=== PATIENT | female | born 1985 | race Caucasian/White ===

== ENCOUNTER 2018-04-14 15:28 | Inpatient (IN) ==
[2018-04-14] MEDS ORDERED: Tdap (Boostrix) Vaccine 0.5 ML SYRINGE IM ONE (15:54)
--- NOTE | 2018-04-14 15:54 | Emergency Department Note ---
Disposition Clinical Impression: Suicidal ideation Disposition: Admitted As Inpatient Condition: Good Time of Disposition: 22:38 Psych HPI - General Chief Complaint: ED Psychiatric Symptoms Stated Complaint: si Time Seen by Provider: 04/14/18 15:36 Source: patient Mode of arrival: ambulatory Limitations: no limitations Nursing Notes Reviewed: Yes Vital Signs Reviewed: Yes - History of Present Illness HPI Narrative: Patient is a 32-year-old female with a history of bipolar/schizophrenia who presents to [facility] ED with concern for suicidal ideation. She is present with her stepmother. States she went to the river yesterday and cut herself up with last. She then tried to drown herself in the river. Patient was seen at [place] emergency department last night but did not disclose that she was suicidal at the time. Apparently they thought she was swimming in the river and got the abrasions from the trees. Pt complaint: suicidal ideation Onset (ago): day(s) (1) History of similar episodes: Yes Improves with: none Worsens with: none Context: not taking psychiatric medications Associated Psychiatric Symptoms: suicidal ideation, auditory hallucinations, visual hallucinations Associated symptoms: Denies: shortness of breath, nausea, vomiting Traumatic symptoms: abrasion Treatments prior to arrival: none Self harm or harm to others: admits thoughts of self harm, has acted on plan - Related Data Allergies Allergy/AdvReac Type Severity Reaction Status Date / Time Penicillins Allergy Hives Verified 07/13/15 21:13 tramadol Allergy Hives Verified 07/13/15 21:13 All systems ED: reviewed and negative except as stated. Past Medical History - Past Medical History Attestation: Yes The following information was validated with the patient. Source: patient Medical history: Reports: no medical history Surgical history: Reports: hysterectomy Psychiatric history: Reports: bipolar, schizophrenia DIRECTOR CUSTOMER history: Reports: no DIRECTOR CUSTOMER history - Social History Smoking Status: Current every day smoker Smokeless Tobacco Status: No Alcohol use: Reports: rarely Drug use: Reports: cocaine, opiates, methamphetamine, IV Drug Use, other Physical Exam - General Limitations: no limitations General appearance: alert - Head Head exam: atraumatic, normocephalic, normal inspection - Eye Eye exam: Present: normal appearance, EOMI - ENT ENT exam: normal exam, normal oropharynx, mucous membranes moist - Neck Neck exam: Present: normal inspection, full ROM, trachea midline - Chest Chest inspection: Present: normal inspection, symmetric chest wall rise - Respiratory Respiratory exam: Present: normal lung sounds bilaterally - Cardiovascular Cardiovascular exam: Present: regular rate, normal rhythm, normal heart sounds - Abdominal Exam Abdominal exam: Present: soft, Non-Tender. Absent: tenderness, distention, guarding, rebound, rigidity - Extremities Exam Extremities exam: Present: other (multiple linear forearm abrasions) - Neurological Exam Neurological exam: Present: alert, oriented X3 - Psychiatric Psychiatric exam: Present: normal affect, normal mood - Skin Skin exam: Present: warm, dry, normal color, other (multiple linear ab, abdomen , left part of the neck.) Course Course Narrative: Patient seen and examined. Patient with multiple abrasions on her forearms and abdomen and one on her left neck. Patient states this was self-inflicted and that she was trying to commit suicide. States she has a history of methamphetamine use most recent of which was 2 days ago. She was seen at [facility] emergency department last night and did not disclose that she was suicidal at that time. We will do medical clearance and have psychiatry see her here. Patient also states she has intermittently had some shortness of breath. We will order a chest x-ray. Her tetanus status is unknown so we will go ahead and update her here. Will give a liter of IVF since she is mildy tachycardic here and UA is concentrated. - Reevaluation(s) Reevaluation #1: UDS positive for opiates, amphetamines, and cocaine. Pt medically cleared for 1A evaluation. Time: 16:59 Reevaluation #2: Patient accepted by our psychiatry unit. We will place the bed request and sign the pink slip. Time: 19:00 Vital Signs Temperature 98.1 F 04/14/18 15:30 Pulse Rate 124 04/14/18 15:30 Respiratory Rate 14 04/14/18 15:30 Blood Pressure 117/73 04/14/18 15:30 O2 Sat by Pulse Oximetry 96 04/14/18 15:30 Temperature 98.9 F 04/14/18 20:32 Pulse Rate 107 04/14/18 20:32 Respiratory Rate 16 04/14/18 20:32 Blood Pressure 107/71 04/14/18 20:32 O2 Sat by Pulse Oximetry 96 04/14/18 15:30 Oxygen Delivery Oxygen Delivery Room Air Psych - Medical Records Medical records reviewed: Yes I reviewed the patient's medical records. - Lab Data Lab results reviewed: Yes I reviewed the patient's lab results. Result diagrams: 04/14/18 15:50 04/14/18 15:50 Lab Results 04/14/18 04/14/18 04/14/18 Range/Units 15:40 15:40 15:48 WBC (4.3-11.1) K/mcL RBC (3.82-4.97) M/mcL Hgb (11.5-15.4) g/dL Hct (35.3-44.9) % MCV (83.0-100.0) fL MCH (28.0-33.3) pg MCHC (31.6-35.5) g/dL RDW (11.5-14.5) % Plt Count (140-400) K/mcL MPV (9.4-12.4) fL Immature Gran % (0-4) % Seg Neutrophils % % Lymphocytes % % Monocytes % % Eosinophils % % Basophils % % Neutrophils # (1.6-8.9) K/mcL Lymphocytes # (0.6-4.6) K/mcL Monocytes # (0.0-1.3) K/mcL Eosinophils # (0.0-0.6) K/mcL Basophils # (0.0-0.2) K/mcL Sodium (136-145) mEq/L Potassium (3.5-5.1) mEq/L Chloride (98-107) mEq/L Carbon Dioxide (23-29) mEq/L BUN (6-20) mg/dL Creatinine (0.60-1.20) mg/dL Est GFR ( Amer) (> 60) Est GFR (Non-Af Amer) (> 60) BUN/Creatinine Ratio (6-26) Glucose (70-105) mg/dL Calculated Osmolality (280-300) Calcium (8.6-10.3) mg/dL Urine Color Yellow (Yellow) Urine Clarity Cloudy A (Clear) Urine pH 6.0 (5.0-8.0) pH Units Ur Specific [place] > 1.030 H (1.010-1.025) Urine Protein Trace (Neg-Trace) mg/dL Urine Glucose (UA) Normal (Normal) mg/dL Urine Ketones 40 H (Negative) mg/dL Urine Blood Negative (Negative) Urine Nitrite Negative (Negative) Urine Bilirubin Small H (Negative) Urine Urobilinogen Normal (Normal) mg/dL Ur Leukocyte Esterase Negative (Negative) Urine Microscopic WBC 5-15 H (0-3) per hpf Ur Squamous Epith Cells Many H (None-Few) per lpf Urine Bacteria Many H (None-Few) per hpf Hyaline Casts None Seen (None-Few) per lpf Urine Test Negative (Negative) Salicylates (15.0-30.0) mg/dL Urine Opiates Screen Positive H (Bkvizh=894) ng/mL Acetaminophen (10-20) mcg/mL Ur Barbiturates Screen Negative (Yfvbqm=078) ng/mL Ur Phencyclidine Scrn Negative (Cutoff=25) ng/mL Ur Amphetamines Screen Positive H (Ybwown=7500) ng/mL U Benzodiazepines Scrn Negative (Asjqlw=823) ng/mL Urine Cocaine Screen Positive H (Cutoff= 300) ng/mL U Marijuana (THC) Screen Negative (Cutoff = 50) ng/mL Ethyl Alcohol (Less than 10) mg/dL 04/14/18 04/14/18 Range/Units 15:50 15:50 WBC 10.3 (4.3-11.1) K/mcL RBC 5.15 H (3.82-4.97) M/mcL Hgb 15.2 (11.5-15.4) g/dL Hct 43.1 (35.3-44.9) % MCV 83.7 (83.0-100.0) fL MCH 29.5 (28.0-33.3) pg MCHC 35.3 (31.6-35.5) g/dL RDW 13.2 (11.5-14.5) % Plt Count 294 (140-400) K/mcL MPV 9.7 (9.4-12.4) fL Immature Gran % 0.2 (0-4) % Seg Neutrophils % 42.7 % Lymphocytes % 44.9 % Monocytes % 11.4 % Eosinophils % 0.4 % Basophils % 0.4 % Neutrophils # 4.4 (1.6-8.9) K/mcL Lymphocytes # 4.6 (0.6-4.6) K/mcL Monocytes # 1.2 (0.0-1.3) K/mcL Eosinophils # 0.0 (0.0-0.6) K/mcL Basophils # 0.0 (0.0-0.2) K/mcL Sodium 135 L (136-145) mEq/L Potassium 3.6 (3.5-5.1) mEq/L Chloride 104 (98-107) mEq/L Carbon Dioxide 22 L (23-29) mEq/L BUN 17 (6-20) mg/dL Creatinine 0.80 (0.60-1.20) mg/dL Est GFR ( Amer) > 60 (> 60) Est GFR (Non-Af Amer) > 60 (> 60) BUN/Creatinine Ratio 21 (6-26) Glucose 145 H (70-105) mg/dL Calculated Osmolality 284 (280-300) Calcium 9.9 (8.6-10.3) mg/dL Urine Color (Yellow) Urine Clarity (Clear) Urine pH (5.0-8.0) pH Units Ur Specific [place] (1.010-1.025) Urine Protein (Neg-Trace) mg/dL Urine Glucose (UA) (Normal) mg/dL Urine Ketones (Negative) mg/dL Urine Blood (Negative) Urine Nitrite (Negative) Urine Bilirubin (Negative) Urine Urobilinogen (Normal) mg/dL Ur Leukocyte Esterase (Negative) Urine Microscopic WBC (0-3) per hpf Ur Squamous Epith Cells (None-Few) per lpf Urine Bacteria (None-Few) per hpf Hyaline Casts (None-Few) per lpf Urine Test (Negative) Salicylates < 2.5 L (15.0-30.0) mg/dL Urine Opiates Screen (Lgieod=826) ng/mL Acetaminophen < 10 L (10-20) mcg/mL Ur Barbiturates Screen (Icjqmm=851) ng/mL Ur Phencyclidine Scrn (Cutoff=25) ng/mL Ur Amphetamines Screen (Szhijb=1029) ng/mL U Benzodiazepines Scrn (Vuqtyw=570) ng/mL Urine Cocaine Screen (Cutoff= 300) ng/mL U Marijuana (THC) Screen (Cutoff = 50) ng/mL Ethyl Alcohol < 10 (Less than 10) mg/dL - Radiology Data Radiology results reviewed: Yes I reviewed the patient's radiology results. Psychiatric Medical Clearance - Medical Clearance Checklist Does the patient have a NEW psychiatric condition?: No Any abnormalities indicating possible medical illness?: No Any history of medical issues?: No Medical History: No Social History Section defined Any abnormal vital signs prior to transfer?: No Current Vitals: Last Vital Signs Temp 98.9 F 04/14/18 20:32 Pulse 107 04/14/18 20:32 Resp 16 04/14/18 20:32 BP 107/71 04/14/18 20:32 Pulse Ox 96 04/14/18 15:30 Is the patient intoxicated or cognitively impaired?: No Psychiatric Lab Panel: Drug Levels and Toxicity 04/14/18 04/14/18 15:48 15:50 Urine Opiates Screen Positive H Acetaminophen < 10 L Ur Barbiturates Screen Negative Ur Phencyclidine Scrn Negative Ur Amphetamines Screen Positive H U Benzodiazepines Scrn Negative Urine Cocaine Screen Positive H U Marijuana (THC) Screen Negative Ethyl Alcohol < 10 Any abnormalities on the physical exam?: No Any abnormal labs?: No Abnormal Labs: Abnormal lab results RBC 5.15 M/mcL (3.82-4.97) H 04/14/18 15:50 Sodium 135 mEq/L (136-145) L 04/14/18 15:50 Carbon Dioxide 22 mEq/L (23-29) L 04/14/18 15:50 Glucose 145 mg/dL (70-105) H 04/14/18 15:50 Urine Clarity Cloudy (Clear) A 04/14/18 15:40 Ur Specific [place] > 1.030 (1.010-1.025) H 04/14/18 15:40 Urine Ketones 40 mg/dL (Negative) H 04/14/18 15:40 Urine Bilirubin Small (Negative) H 04/14/18 15:40 Urine Microscopic WBC 5-15 per hpf (0-3) H 04/14/18 15:40 Ur Squamous Epith Cells Many per lpf (None-Few) H 04/14/18 15:40 Urine Bacteria Many per hpf (None-Few) H 04/14/18 15:40 Salicylates < 2.5 mg/dL (15.0-30.0) L 04/14/18 15:50 Urine Opiates Screen Positive ng/mL (Eckjia=403) H 04/14/18 15:48 Acetaminophen < 10 mcg/mL (10-20) L 04/14/18 15:50 Ur Amphetamines Screen Positive ng/mL (Zptuji=3733) H 04/14/18 15:48 Urine Cocaine Screen Positive ng/mL (Cutoff= 300) H 04/14/18 15:48 Does the patient require durable medical equiptment?: No Is the patient ambulatory?: Yes Is the patient a fall risk?: No Has the patient been medically cleared?: Yes Any acute medical condition require Tx prior to transfer?: No Statement of Medical Clearance: I have evaluated the patient, reviewed diagnostic information, and certify that the patient's medical condition is sufficiently stable that transfer to the psychiatric unit does not pose a significant risk of deterioration.
[2018-04-14 16:00] LABS: Basophils % 0.4 %; Eosinophils % 0.4 %; Hematocrit 43.1 % (35.3-44.9); Hemoglobin 15.2 g/dL (11.5-15.4); Immature Granulocytes % 0.2 % (0-4); Lymphocytes # 4.6 K/mcL (0.6-4.6); Lymphocytes % 44.9 %; Mean Corpuscular HGB Conc 35.3 g/dL (31.6-35.5); Mean Corpuscular Hemoglobin 29.5 pg (28.0-33.3); Mean Corpuscular Volume 83.7 fL (83.0-100.0); Mean Platelet Volume 9.7 fL (9.4-12.4); Monocytes # 1.2 K/mcL (0.0-1.3); Monocytes % 11.4 %; Neutrophils # 4.4 K/mcL (1.6-8.9); Platelet Count 294 K/mcL (140-400); Red Blood Count 5.15 M/mcL (3.82-4.97); Red Cell Distribution Width 13.2 % (11.5-14.5); Segmented Neutrophils % 42.7 %
[2018-04-14 16:02] LABS: Bilirubin,Urine Small (Negative); Blood,Urine Negative (Negative); Clarity,Urine Cloudy (Clear); Color,Urine Yellow (Yellow); Glucose,Urine (UA) Normal (Normal); Ketones,Urine 40 mg/dL (Negative); Leukocyte Esterase,Urine Negative (Negative); Nitrite,Urine Negative (Negative); Protein,Urine Trace mg/dL (Neg-Trace); Specific Gravity,Urine > 1.030 (1.010-1.025); Urobilinogen,Urine Normal (Normal)
[2018-04-14 16:10] LABS: Bacteria,Urine Many per hpf (None-Few); Hyaline Casts,Urine None Seen per lpf (None-Few); Squamous Epithelial Cell,Urine Many per lpf (None-Few)
[2018-04-14] MEDS ORDERED: 0.9 % Sodium Chloride 1,000 ML IVC ONE (16:13)
--- NOTE | 2018-04-14 16:14 | Emergency Department Note ---
Disposition Clinical Impression: Suicidal ideation Disposition: Still a Patient Condition: Good Forms: ED Satisfaction Letter General Adult HPI - General Chief complaint: ED Psychiatric Symptoms Stated complaint: si Time Seen by Provider: 04/14/18 15:36 Source: patient Mode of arrival: ambulatory Limitations: no limitations - History of Present Illness Pain Scale: 4 - Related Data Allergies Allergy/AdvReac Type Severity Reaction Status Date / Time Penicillins Allergy Hives Verified 07/13/15 21:13 tramadol Allergy Hives Verified 07/13/15 21:13 Past Medical History - Past Medical History Medical history: Reports: no medical history Surgical history: Reports: hysterectomy Psychiatric history: Reports: bipolar, schizophrenia PLIER WORKER history: Reports: no PLIER WORKER history - Social History Smoking Status: Current every day smoker Smokeless Tobacco Status: No Alcohol use: Reports: rarely Drug use: Reports: cocaine, opiates, methamphetamine, IV Drug Use, other Physical Exam - General Limitations: no limitations General appearance: alert Course Vital Signs Temperature 98.1 F 04/14/18 15:30 Pulse Rate 124 04/14/18 15:30 Respiratory Rate 14 04/14/18 15:30 Blood Pressure 117/73 04/14/18 15:30 O2 Sat by Pulse Oximetry 96 04/14/18 15:30 Temperature 98.1 F 04/14/18 15:30 Pulse Rate 124 04/14/18 15:30 Respiratory Rate 14 04/14/18 15:30 Blood Pressure 117/73 04/14/18 15:30 O2 Sat by Pulse Oximetry 96 04/14/18 15:30 Oxygen Delivery Oxygen Delivery Room Air Medical Decision Making - Lab Data Result diagrams: 04/14/18 15:50 Lab Results 04/14/18 04/14/18 04/14/18 Range/Units 15:40 15:40 15:50 WBC 10.3 (4.3-11.1) K/mcL RBC 5.15 H (3.82-4.97) M/mcL Hgb 15.2 (11.5-15.4) g/dL Hct 43.1 (35.3-44.9) % MCV 83.7 (83.0-100.0) fL MCH 29.5 (28.0-33.3) pg MCHC 35.3 (31.6-35.5) g/dL RDW 13.2 (11.5-14.5) % Plt Count 294 (140-400) K/mcL MPV 9.7 (9.4-12.4) fL Immature Gran % 0.2 (0-4) % Seg Neutrophils % 42.7 % Lymphocytes % 44.9 % Monocytes % 11.4 % Eosinophils % 0.4 % Basophils % 0.4 % Neutrophils # 4.4 (1.6-8.9) K/mcL Lymphocytes # 4.6 (0.6-4.6) K/mcL Monocytes # 1.2 (0.0-1.3) K/mcL Eosinophils # 0.0 (0.0-0.6) K/mcL Basophils # 0.0 (0.0-0.2) K/mcL Urine Color Yellow (Yellow) Urine Clarity Cloudy A (Clear) Urine pH 6.0 (5.0-8.0) pH Units Ur Specific [place] > 1.030 H (1.010-1.025) Urine Protein Trace (Neg-Trace) mg/dL Urine Glucose (UA) Normal (Normal) mg/dL Urine Ketones 40 H (Negative) mg/dL Urine Blood Negative (Negative) Urine Nitrite Negative (Negative) Urine Bilirubin Small H (Negative) Urine Urobilinogen Normal (Normal) mg/dL Ur Leukocyte Esterase Negative (Negative) Urine Test Negative (Negative) Attestation Statement - Attestation Attestation: I examined this patient and my medical decision-making was reviewed with the Resident Physician. I agree with the documented findings, disposition and treatment plan as described except to the extent set forth below. 32 year old claire carter ot the ED with complaints of SI and state that yesterday she was evalauted at [place]ign [place] and she has multiple intetional sractch marsk on her body in attempts to kill herself and tried to drown ysterday. Amelia do mdical clearance including trauma eval and then consult Jd Wilsl be admitted.
[2018-04-14 16:20] LABS: Acetaminophen < 10 mcg/mL (10-20); BUN/Creatinine Ratio 21 (6-26); Blood Urea Nitrogen 17 mg/dL (6-20); Calcium 9.9 mg/dL (8.6-10.3); Carbon Dioxide 22 mEq/L (23-29); Chloride 104 mEq/L (98-107); Ethanol < 10 mg/dL (Less than 10); Glucose 145 mg/dL (70-105); Osmolality,Calculated 284 (280-300); Potassium 3.6 mEq/L (3.5-5.1); Salicylate < 2.5 mg/dL (15.0-30.0); Sodium 135 mEq/L (136-145); eGFR For African Americans > 60 (> 60); eGFR For Non-African Americans > 60 (> 60)
[2018-04-14] MEDS ORDERED: Ibuprofen 600 MG TABLET PO ONE (16:33)
[2018-04-14 16:52] LABS: Amphetamine Screen,Urine Positive ng/mL (Cutoff=1000); Barbiturate Screen,Urine Negative ng/mL (Cutoff=200); Benzodiazepines Screen,Urine Negative ng/mL (Cutoff=200); Cannabinoid Screen,Urine Negative ng/mL (Cutoff = 50); Cocaine Screen,Urine Positive ng/mL (Cutoff= 300); Opiate Screen,Urine Positive ng/mL (Cutoff=300); Phencyclidine Screen,Urine Negative ng/mL (Cutoff=25)
[2018-04-14] MEDS ORDERED: *HR* LORazepam 2 MG/ML VIAL IM PRN (18:57)
[2018-04-14] MEDS ORDERED: Mag Hydrox/Al Hydrox/Simeth 30 ML UDC PO PRN (18:57)
[2018-04-14] MEDS ORDERED: Haloperidol Lactate 5 MG/ML VIAL IM PRN (18:57)
[2018-04-14] MEDS ORDERED: MOM Conc 10 ML UD.LIQ PO PRN (18:57)
[2018-04-14] MEDS ORDERED: *HR* LORazepam 1 MG TABLET PO PRN (18:57)
[2018-04-14] MEDS ORDERED: hydrOXYzine pamoate 25 MG CAPSULE PO PRN (18:57)
[2018-04-14] MEDS ORDERED: risperiDONE 1 MG TABLET PO ONE ×2 (21:00)
[2018-04-15] MEDS: Ibuprofen 400 MG TABLET PO PRN ×2 (09:13→15:47)
--- NOTE | 2018-04-15 09:35 | Psychiatry History & Physical ---
Date of Encounter: 04/15/18 Time of Encounter: 09:33 History of Present Illness Patient Stated Chief Complaint: Suicidal ideation, self-mutilation Medicare Admission Attestation: For traditional Medicare patients the provided hospital inpatient services are reasonable and necessary and in the case of services not specified as inpatient -only under 42 CFR 419.22 (n), that they are appropriately provided as inpatient services in accordance 42 CFR 412.3. For Critical Access Hospital the patient may reasonably be expected to be discharged or transferred to a hospital within 96 hours after admission to the Critical Access Hospital. Admitted From: Emergency Dept History of Present Illness: Ms. Monk is a 32 year old female admitted from the emergency department for suicidal ideation and self-mutilation. Patient has a history of psychosis and drug abuse and noncompliance. UDS was positive for opiates amphetamine and cocaine. Patient also has a history of IVDA. Patient was noncompliant with medication prior to admission and admitted to use drugs of on the streets. She reports she did well when she went into drug treatment but she did not continue. Patient reports feeling low self-esteem, hopelessness and helplessness. She was hospitalized in 2013 and 2010 in this hospital for similar presentation of psychosis drug abuse and suicidal ideation. Consistently she was noncompliant. Patient has 2 children that she lost custody of and has no social support at this time and she was homeless. Patient has high school diploma and did work in factories in the past. Past Med Surg Social Fam HX - Past Medical History Medical history: no medical history - Past Psychiatric History Psychiatric history: Reports: depression, schizophrenia, previous psychiatric hospitalization, other (Substance abuse) Past psychiatric history details: Was hospitalized in 2013 and 2010 for psychosis and substance abuse - Past Surgical History Surgical History: hysterectomy - Social History Smoking Status: Current every day smoker Smokeless Tobacco Status: No Alcohol use: rarely Drug use: cocaine, opiates, methamphetamine, IV Drug Use, other Medications & Allergies 3 Allergy/AdvReac Type Severity Reaction Status Date / Time Penicillins Allergy Hives Verified 07/13/15 21:13 tramadol Allergy Hives Verified 07/13/15 21:13 Review of Systems Psychiatric: Reports: depression, suicidal ideation, auditory hallucinations, hopelessness Exam - HEENT Head exam IM: Present: atraumatic Eye exam IM: Present: EOMI, normal appearance, PERRL ENT exam IM: Present: normal exam - Neurological Neurological exam: Present: CN II-XII intact - Respiratory Respiratory exam IM: Present: CTAB - GI/Abdominal GI/Abdominal exam IM: Present: normal bowel sounds, soft. Absent: tenderness - Extremities Extremities exam IM: Present: full ROM - Skin Skin exam IM: Present: abrasion (Self-mutilation on both forearms), dry, warm - Constitutional Vitals: Temp Pulse Resp BP Pulse Ox 98.9 F 107 16 107/71 96 04/14/18 20:32 04/14/18 20:32 04/14/18 20:32 04/14/18 20:32 04/14/18 15:30 General appearance: age & developmentally appropriate, well-nourished, unkempt, disheveled - Musculoskeletal Gait: normal Station: relaxed Strength & Tone: normal for patient - Psychiatric Patient Orientation: Yes Person, Yes Time, Yes Place Level of alertness: Alert Behavior: calm, cooperative, restless Psychomotor activity: Normal Eye Contact: Minimal Contact Mood Description: Depressed, Anxious, Irritable Affect description: congruent with mood, labile, dysphoric Speech Volume: Normal, Soft/Quiet Speech pattern: normal rate, normal rhythm, normal tone, fluent, limited Language & Vocabulary: consistent with education Thought Process: Linear, Goal Oriented Thought Content: Yes Suicidal ideation, No Homicidal ideation, No Overt delusions Perceptual Disturbances: Yes Auditory hallucinations, No Visual hallucinations Attention Span Ability: Unable to Focus Memory Description: Grossly Intact Patient Reliability: Questionable Historian Fund of knowledge: Yes abstraction ability, Yes average, Yes aware of current events Intelligence Estimate: Average Judgment: Limited Insight: Partial Results - Labs Labs: Laboratory Last Values WBC 10.3 K/mcL (4.3-11.1) 04/14/18 15:50 RBC 5.15 M/mcL (3.82-4.97) H 04/14/18 15:50 Hgb 15.2 g/dL (11.5-15.4) 04/14/18 15:50 Hct 43.1 % (35.3-44.9) 04/14/18 15:50 MCV 83.7 fL (83.0-100.0) 04/14/18 15:50 MCH 29.5 pg (28.0-33.3) 04/14/18 15:50 MCHC 35.3 g/dL (31.6-35.5) 04/14/18 15:50 RDW 13.2 % (11.5-14.5) 04/14/18 15:50 Plt Count 294 K/mcL (140-400) 04/14/18 15:50 MPV 9.7 fL (9.4-12.4) 04/14/18 15:50 Immature Gran % 0.2 % (0-4) 04/14/18 15:50 Seg Neutrophils % 42.7 % 04/14/18 15:50 Lymphocytes % 44.9 % 04/14/18 15:50 Monocytes % 11.4 % 04/14/18 15:50 Eosinophils % 0.4 % 04/14/18 15:50 Basophils % 0.4 % 04/14/18 15:50 Neutrophils # 4.4 K/mcL (1.6-8.9) 04/14/18 15:50 Lymphocytes # 4.6 K/mcL (0.6-4.6) 04/14/18 15:50 Monocytes # 1.2 K/mcL (0.0-1.3) 04/14/18 15:50 Eosinophils # 0.0 K/mcL (0.0-0.6) 04/14/18 15:50 Basophils # 0.0 K/mcL (0.0-0.2) 04/14/18 15:50 Sodium 135 mEq/L (136-145) L 04/14/18 15:50 Potassium 3.6 mEq/L (3.5-5.1) 04/14/18 15:50 Chloride 104 mEq/L (98-107) 04/14/18 15:50 Carbon Dioxide 22 mEq/L (23-29) L 04/14/18 15:50 BUN 17 mg/dL (6-20) 04/14/18 15:50 Creatinine 0.80 mg/dL (0.60-1.20) 04/14/18 15:50 Est GFR ( Amer) > 60 (> 60) 04/14/18 15:50 Est GFR (Non-Af Amer) > 60 (> 60) 04/14/18 15:50 BUN/Creatinine Ratio 21 (6-26) 04/14/18 15:50 Glucose 145 mg/dL (70-105) H 04/14/18 15:50 Calculated Osmolality 284 (280-300) 04/14/18 15:50 Calcium 9.9 mg/dL (8.6-10.3) 04/14/18 15:50 Urine Color Yellow (Yellow) 04/14/18 15:40 Urine Clarity Cloudy (Clear) A 04/14/18 15:40 Urine pH 6.0 pH Units (5.0-8.0) 04/14/18 15:40 Ur Specific [place] > 1.030 (1.010-1.025) H 04/14/18 15:40 Urine Protein Trace mg/dL (Neg-Trace) 04/14/18 15:40 Urine Glucose (UA) Normal mg/dL (Normal) 04/14/18 15:40 Urine Ketones 40 mg/dL (Negative) H 04/14/18 15:40 Urine Blood Negative (Negative) 04/14/18 15:40 Urine Nitrite Negative (Negative) 04/14/18 15:40 Urine Bilirubin Small (Negative) H 04/14/18 15:40 Urine Urobilinogen Normal mg/dL (Normal) 04/14/18 15:40 Ur Leukocyte Esterase Negative (Negative) 04/14/18 15:40 Urine Microscopic WBC 5-15 per hpf (0-3) H 04/14/18 15:40 Ur Squamous Epith Cells Many per lpf (None-Few) H 04/14/18 15:40 Urine Bacteria Many per hpf (None-Few) H 04/14/18 15:40 Hyaline Casts None Seen per lpf (None-Few) 04/14/18 15:40 Urine Test Negative (Negative) 04/14/18 15:40 Salicylates < 2.5 mg/dL (15.0-30.0) L 04/14/18 15:50 Urine Opiates Screen Positive ng/mL (Abhbxw=154) H 04/14/18 15:48 Acetaminophen < 10 mcg/mL (10-20) L 04/14/18 15:50 Ur Barbiturates Screen Negative ng/mL (Gcrfie=571) 04/14/18 15:48 Ur Phencyclidine Scrn Negative ng/mL (Cutoff=25) 04/14/18 15:48 Ur Amphetamines Screen Positive ng/mL (Egblrv=9860) H 04/14/18 15:48 U Benzodiazepines Scrn Negative ng/mL (Mtfsjj=202) 04/14/18 15:48 Urine Cocaine Screen Positive ng/mL (Cutoff= 300) H 04/14/18 15:48 U Marijuana (THC) Screen Negative ng/mL (Cutoff = 50) 04/14/18 15:48 Ethyl Alcohol < 10 mg/dL (Less than 10) 04/14/18 15:50 Assessment and Plan (1) Suicidal ideation Current visit: Yes Status: Acute Plan: Admit inpatient for safety and stabilization, Close observation, Suicide Precautions per unit protocol, Encourage participation in unit milieu, Group Therapy, Monitor sleep, Monitor appetite Risks, benefits, side effects, alternatives discussed w/pt: Yes Patient agreeable to treatment: Yes Estimated Length of Stay (Days): 5 (2) Polysubstance dependence including opioid type drug without complication, continuous use Current visit: Yes Status: Acute Plan: Admit inpatient for safety and stabilization, Close observation, Suicide Precautions per unit protocol, Encourage participation in unit milieu, Group Therapy, Monitor sleep, Monitor appetite Risks, benefits, side effects, alternatives discussed w/pt: Yes Patient agreeable to treatment: Yes
[2018-04-15] MEDS: Venlafaxine XR (24 HR) 75 MG CAP.ER.24H PO SCH (12:02)
[2018-04-16] MEDS: Venlafaxine XR (24 HR) 75 MG CAP.ER.24H PO SCH (09:32)
[2018-04-16] MEDS: Ibuprofen 400 MG TABLET PO PRN (09:32)
--- NOTE | 2018-04-16 13:08 | Psychiatry Progress Note ---
Date of Encounter: 04/16/18 Time of Encounter: 13:06 Subjective Interval history: Patient seen for follow-up. Case discussed was nursing staff. She reports sleeping better and denied a any hallucination or suicidal ideation. She met was social insurance specialist will help her placed in drug treatment program. She is anxious about some legal charges that are pending and awaiting information. No behavioral problems or agitation report. She is medication compliant and cooperative. Review of Systems Psychiatric: Reports: depression, suicidal ideation, auditory hallucinations, hopelessness Results - Vital Signs Vital Signs: Temp Pulse Resp BP Pulse Ox 97.4 F L 68 18 125/89 96 04/16/18 09:00 04/16/18 09:00 04/16/18 09:00 04/16/18 09:00 04/14/18 15:30 Assessment and Plan (1) Suicidal ideation Current visit: Yes Status: Acute Plan: Continue hospitalization, Close observation, Suicide Precautions per unit protocol, Encourage participation in unit milieu, Group Therapy, Monitor sleep, Monitor appetite Risks, benefits, side effects, alternatives discussed w/pt: Yes Patient agreeable to treatment: Yes (2) Polysubstance dependence including opioid type drug without complication, continuous use Current visit: Yes Status: Acute Plan: Continue hospitalization, Close observation, Suicide Precautions per unit protocol, Encourage participation in unit milieu, Group Therapy, Monitor sleep, Monitor appetite Risks, benefits, side effects, alternatives discussed w/pt: Yes Patient agreeable to treatment: Yes Consult Discharge Plan - Plan Referrals: NONE,PCP [Primary Care Provider] - Psychiatry Exam - Constitutional Vitals: Temp Pulse Resp BP Pulse Ox 97.4 F L 68 18 125/89 96 04/16/18 09:00 04/16/18 09:00 04/16/18 09:00 04/16/18 09:00 04/14/18 15:30 General appearance: age & developmentally appropriate, well-groomed, well- nourished, average - Musculoskeletal Gait: normal Station: relaxed Strength & Tone: normal for patient - Psychiatric Patient Orientation: Yes Person, Yes Time, Yes Place Level of alertness: Alert Behavior: calm, cooperative Psychomotor activity: Slowed Eye Contact: Maintains Eye Contact Mood Description: Euthymic/stable, Depressed Affect description: congruent with mood, constricted Speech Volume: Normal Speech pattern: normal rate, normal rhythm, normal tone, fluent, spontaneous Language & Vocabulary: consistent with education Thought Process: Linear, Goal Oriented Thought Content: No Suicidal ideation, No Homicidal ideation, No Overt delusions Perceptual Disturbances: No Auditory hallucinations, No Visual hallucinations Attention Span Ability: Capable of Focused Attention Memory Description: Grossly Intact Patient Reliability: Reliable Historian Fund of knowledge: Yes abstraction ability, Yes aware of current events Intelligence Estimate: Average Judgment: Limited Insight: Partial
[2018-04-16] MEDS: Nicotine 21 MG PATCH.TD24 TD SCH (20:18)
[2018-04-16] MEDS: traZODone 50 MG TABLET PO PRN (21:53)
[2018-04-17] MEDS: Ibuprofen 400 MG TABLET PO PRN ×2 (08:43→18:55)
[2018-04-17] MEDS: Venlafaxine XR (24 HR) 75 MG CAP.ER.24H PO SCH (08:43)
[2018-04-17] MEDS: Nicotine 21 MG PATCH.TD24 TD SCH (08:44)
--- NOTE | 2018-04-17 14:36 | Psychiatry Progress Note ---
Date of Encounter: 04/17/18 Time of Encounter: 14:34 Subjective Interval history: Patient seen for follow-up. Case discussed with treatment team. Patient denies suicidal ideation or hallucinations. She is medication compliant and report to improve sleep. She denies any withdrawal symptoms. She is working on discharge plan with social media senior associate with option to starts drug rehabilitation if bed is available. Affect still flat but otherwise she denies having any depressive symptoms or hopelessness. She is cooperative, ADLs improved. Review of Systems Psychiatric: Reports: depression, suicidal ideation, auditory hallucinations, hopelessness Results - Vital Signs Vital Signs: Temp Pulse Resp BP Pulse Ox 98.2 F 64 16 142/96 96 04/17/18 08:23 04/17/18 08:23 04/17/18 08:04/17/18 08:04/14/18 15:30 Assessment and Plan (1) Suicidal ideation Current visit: Yes Status: Acute Plan: Continue hospitalization, Close observation, Suicide Precautions per unit protocol, Encourage participation in unit milieu, Group Therapy, Monitor sleep, Monitor appetite Risks, benefits, side effects, alternatives discussed w/pt: Yes Patient agreeable to treatment: Yes (2) Polysubstance dependence including opioid type drug without complication, continuous use Current visit: Yes Status: Acute Plan: Continue hospitalization, Close observation, Suicide Precautions per unit protocol, Encourage participation in unit milieu, Group Therapy, Monitor sleep, Monitor appetite Risks, benefits, side effects, alternatives discussed w/pt: Yes Patient agreeable to treatment: Yes Consult Discharge Plan - Plan Referrals: [facility] [Outside] - 04/26/18 2:00 pm (The above appointment is with [facility] for outpatient mental health and substance abuse counseling services. You will also see the psychiatric prescriber on 2017 at 9:00 AM her outpatient psychiatric assessment and medication management services. The above appointments reflect first availability. You may contact the office on a regular basis to check for cancellations that may allow you to be seen sooner.) Psychiatry Exam - Constitutional Vitals: Temp Pulse Resp BP Pulse Ox 98.2 F 64 16 142/96 96 04/17/18 08:23 04/17/18 08:23 04/17/18 08:23 04/17/18 08:23 04/14/18 15:30 General appearance: age & developmentally appropriate, well-groomed, well- nourished - Musculoskeletal Gait: normal Station: relaxed Strength & Tone: normal for patient - Psychiatric Patient Orientation: Yes Person, Yes Time, Yes Place Level of alertness: Alert Behavior: calm, cooperative Psychomotor activity: Normal Eye Contact: Maintains Eye Contact Mood Description: Euthymic/stable, Depressed Affect description: congruent with mood, constricted, blunted Speech Volume: Normal Speech pattern: normal rate, normal rhythm, normal tone, fluent, spontaneous Language & Vocabulary: consistent with education Thought Process: Linear, Goal Oriented Thought Content: No Suicidal ideation, No Homicidal ideation, No Overt delusions Perceptual Disturbances: No Auditory hallucinations, No Visual hallucinations Attention Span Ability: Capable of Focused Attention Memory Description: Grossly Intact Patient Reliability: Reliable Historian Fund of knowledge: Yes abstraction ability, Yes aware of current events Intelligence Estimate: Average Judgment: Limited Insight: Partial
[2018-04-17] MEDS: traZODone 50 MG TABLET PO PRN (21:11)
[2018-04-17] MEDS: Neosporin OINT 15 GM TUBE TP SCH (22:20)
[2018-04-18] MEDS ORDERED: Nicotine 2 MG GUM BC PRN (00:39)
[2018-04-18] MEDS: Venlafaxine XR (24 HR) 75 MG CAP.ER.24H PO SCH (08:50)
[2018-04-18] MEDS: Neosporin OINT 15 GM TUBE TP SCH (08:51)
[2018-04-18 09:33] VITALS: BP 137/95
--- NOTE | 2018-04-18 13:29 | Discharge Summary ---
Date of Encounter: 04/18/18 Time of Encounter: 13:24 Diagnosis - Discharge Diagnosis (1) Suicidal ideation Status: Acute (2) Polysubstance dependence including opioid type drug without complication, continuous use Status: Acute Medications - Discharge Medications Prescriptions: Venlafaxine XR (24 HR) [Effexor XR] 75 mg PO DAILY #30 cap.er.24h Venlafaxine XR (24 HR) [Effexor XR] 75 mg PO DAILY #30 cap.er.24h 04/18/18 [Rx] 3 Allergy/AdvReac Type Severity Reaction Status Date / Time Penicillins Allergy Hives Verified 07/13/15 21:13 tramadol Allergy Hives Verified 07/13/15 21:13 Provider Date of admission: 04/14/18 18:47 Primary care physician: PCP NONE Discharging clinician: Mirza Tucker Psychiatry Exam - Constitutional Vitals: Temp Pulse Resp BP Pulse Ox 98.4 F 67 18 137/95 96 04/18/18 09:00 04/18/18 09:00 04/18/18 09:00 04/18/18 09:00 04/14/18 15:30 General appearance: age & developmentally appropriate, well-groomed, well- nourished - Musculoskeletal Gait: normal Station: relaxed Strength & Tone: normal for patient - Psychiatric Patient Orientation: Yes Person, Yes Time, Yes Place Level of alertness: Alert Behavior: calm, cooperative Psychomotor activity: Normal Eye Contact: Maintains Eye Contact Mood Description: Euthymic/stable Affect description: congruent with mood, full range Speech Volume: Normal Speech pattern: normal rate, normal rhythm, normal tone, fluent, spontaneous Language & Vocabulary: consistent with education Thought Process: Linear, Goal Oriented Thought Content: No Suicidal ideation, No Homicidal ideation, No Overt delusions Perceptual Disturbances: No Auditory hallucinations, No Visual hallucinations Attention Span Ability: Capable of Focused Attention Memory Description: Grossly Intact Patient Reliability: Reliable Historian Fund of knowledge: Yes abstraction ability, Yes aware of current events Intelligence Estimate: Average Judgment: Limited Insight: Partial Hospital Course Hospital course: Ms. Monk is a 32 year old female admitted for suicidal id and substance abuse. For details of admission see H&P On the unit patient was started on Effexor,she tolerated the medica, she reported improved sleep. She participated in s some groups. She was medication c compliant. At attempts to place patient in drug rehabilitation was not successful, there his waiting time and patient requested to be discharged to stay with her family until bed is available. On discharge patient was medically stable. Nonsuicidal and motivated to participate in treatment.discharge plans completed by social organization professor. Patient is discharged in stable condition. - Time Spent with Patient Total time spent providing and/or coordinating discharge services: Less than 30 minutes Assessment and Plan - Patient/Caregiver Discharge Instructions Activity: resume usual activities as tolerated Diet: regular diet - Follow [facility] 2:00 pm (The above appointment is with [facility] for outpatient mental health and substance abuse counseling services. You will also see the psychiatric prescriber on 2017 at 9:00 AM her outpatient psychiatric assessment and medication management services. The above appointments reflect first availability. You may contact the office on a regular basis to check for cancellations that may allow you to be seen sooner.) Functional capacity at discharge: independent ambulation Overall status at discharge: Stable Disposition: Home, Self-Care Quality - Multiple Antipsychotics Patient discharged on 2 or more antipsychotic medications: No Procedures - Procedures Procedures: Medication Management, Crisis Stabilization, Supportive Therapy, Group Therapy, Psychoeducational Therapy
== END 2018-04-18 14:30 | disposition home or self-care (01) | DRG 754 ==
LOC: EMEROO 15:28 → 1ANU 18:47 → SUATTDRO 18:47 → 1ANU 19:49
PROVIDERS: ADMIT Psychiatry & Neurology Psychiatry; ATTEND Psychiatry & Neurology Psychiatry